=== PATIENT | male | born 2005 | race Two or more races ===

== ENCOUNTER 2023-09-05 19:29 | Emergency (ER) | payer OTHER ==
[~2023-09-05] VITALS: Ht 172.7 cm; Wt 63.5 kg
[2023-09-05] MEDS ORDERED: KETOROLAC TROMETHAMINE 30 MG VIAL ONE ×2 (20:36→20:46)
[2023-09-05] MEDS ORDERED: KETOROLAC TROMETHAMINE 30 MG VIAL IM ONE (20:45)
== END 2023-09-05 21:12 | disposition home or self-care (01) ==
LOC: ER 19:30 → EMR PED 20:13 → ER 20:13 → EMR PED 21:12
DX: L03.90 Cellulitis, unspecified (principal)